=== PATIENT | male | born 1990 | race Caucasian/White ===

== ENCOUNTER → 2017-10-20 | Outpatient (REF) ==
[~2017-10-20] MED LIST: CEP500 PO; IBU800 PO; LOR5 PO
== END ==
LOC: AUD 10:00
PROVIDERS: ATTEND Internal Medicine
DX: Z01.10 Encounter for examination of ears and hearing without abnormal findings (principal)
CPT/HCPCS: 92552

== ENCOUNTER → 2018-12-12 | Outpatient (REF) | LOC: US 00:25 | PROVIDERS: ATTEND Family Medicine | DX: R94.39 Abnormal result of other cardiovascular function study (principal) | CPT/HCPCS: 93306 ==